=== PATIENT | female | born 1980 | race Two or more races ===

== ENCOUNTER 2020-08-03 20:51 | Emergency (ER) | payer OTHER ==
[~2020-08-03] VITALS: Ht 167.6 cm; Wt 72.6 kg
[2020-08-03 20:58] VITALS: BP 137/78
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
[2020-08-03] MEDS ORDERED: Ketorolac 60mg Inj IM ONE (22:30)
[2020-08-03] MEDS ORDERED: Acetaminophen 500mg (ES) tab ORAL ONE (22:30)
[2020-08-03 22:45] LABS: APPEARANCE,URINE CLOUDY; BILIRUBIN, URINE NEGATIVE (NEGATIVE); GLUCOSE, URINE (UA) NEGATIVE (NEGATIVE); KETONES,URINE NEGATIVE (NEGATIVE); LEUKOCYTE ESTERASE ,URINE 2+ (NEGATIVE); NITRITE,URINE NEGATIVE (NEGATIVE); PH,URINE 5 (4.5-8.0); PROTEIN,URINE 2+ (NEGATIVE); UROBILINOGEN,URINE NORMAL MG/DL (0.0-1.0)
[2020-08-03 22:47] LABS: COLOR,URINE YELLOW
[2020-08-03 22:50] VITALS: BP 132/84
[2020-08-03] MEDS ORDERED: IBUPROFEN600 M1 ORAL (23:46)
[2020-08-03] MEDS ORDERED: NITROFURANTOIN100 M2 ORAL (23:46)
[2020-08-03] MEDS ORDERED: NORCO 5-325 TA1 EAC1 ORAL (23:46)
[2020-08-03 23:54] VITALS: BP 129/83
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
[2020-08-06] MEDS ORDERED: IBUPROFEN600 M1 ORAL (11:38)
[2020-08-06] MEDS ORDERED: NITROFURANTOIN100 M2 ORAL ×2 (11:38)
[2020-08-06] MEDS ORDERED: CEPHALEXIN500 MG ORAL (13:25)
== END 2020-08-03 23:54 | disposition home or self-care (01) ==
LOC: EDBD 20:51 → EMR 21:27
DX: S20.212A Contusion of left front wall of thorax, initial encounter (principal); S20.02XA Contusion of left breast, initial encounter; S50.11XA Contusion of right forearm, initial encounter; S80.12XA Contusion of left lower leg, initial encounter; Y04.2XXA Assault by strike against or bumped into by another person, initial encounter; Y92.9 Unspecified place or not applicable; N30.00 Acute cystitis without hematuria; I10 Essential (primary) hypertension
CPT/HCPCS: 71101; 80307; 81003; 81025; 87086; 87181; 87491; 87590; 96372; Z7502; 99283

== ENCOUNTER 2020-08-11 11:38 | Emergency (ER) | payer OTHER ==
[~2020-08-11] VITALS: Ht 175.3 cm; Wt 83.9 kg
[~2020-08-11 11:38] MED LIST: CEPHALEXIN500 MG ORAL; IBUPROFEN600 M1 ORAL; NITROFURANTOIN100 M2 ORAL; NORCO 5-325 TA1 EAC1 ORAL
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
[2020-08-11 11:40] VITALS: BP 95/42
[2020-08-11] MEDS ORDERED: Ketorolac 60mg Inj IM ONE ×2 (11:45→12:07)
[2020-08-11] MEDS ORDERED: Ketorolac 30mg Inj ONE (12:04)
--- NOTE | 2020-08-11 12:42 | NUR ---
ED Nurse Note: pt unable to provide urine sample at this time.
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
[2020-08-11 13:45] VITALS: BP 102/59
--- NOTE | 2020-08-11 14:00 | NUR ---
ED Nurse Note: pt declines urine specimen. ED PA aware.
--- NOTE | 2020-08-11 14:18 | Diagnostic Imaging Report ---
Indication: Chest/rib pain Technique: Noncontrast CT of the chest utilizing automated exposure control. Axial, sagittal and coronal reformats presented. CT dose: Total DLP 362.5 mGycm; CTDI vol 8.5 mGy Comparison: Correlation made to rib radiographs 08/03/2020 Findings: Please note that evaluation of the mediastinum and vascular structures is limited without the use of intravenous and oral contrast. Within these limitations the following observations are made: Minimal dependent atelectatic changes noted in the lung bases. There is no focal airspace consolidation. No pleural effusion or pneumothorax. No evidence of pulmonary contusion. Heart size is within normal limits. No pericardial effusion. No appreciable pathologically enlarged hilar or mediastinal lymphadenopathy. Partially imaged thyroid unremarkable in appearance. Thoracic aorta appears normal in caliber. Noncontrast evaluation of the partially imaged upper abdominal structures is without evidence of acute abnormality. No acute osseous abnormality identified. Specifically, no definite/displaced rib fractures are appreciated. Question subtle asymmetric nodularity of the left breast which is partially visualized. IMPRESSION: No acute abnormality. No evidence of significant traumatic injury to the chest. No acute fracture identified. Possible slight asymmetric nodularity of the left breast, which is partially visualized. Recommend correlation with breast exam and findings of most recent mammogram. If not performed recently then recommend follow-up routine screening mammogram. The CT scanner at [facility] is accredited by the [employer] and the scans are performed using protocols designed to limit radiation exposure to as low as reasonably achievable to attain images of sufficient resolution adequate for diagnostic evaluation.
[2020-08-11] MEDS ORDERED: LIDODERM700 M1 TOPIC (14:21)
[2020-08-11] MEDS ORDERED: NORCO 5-325 TA1 EAC1 ORAL (14:21)
[2020-08-11 14:45] VITALS: BP 106/68
--- NOTE | 2020-08-11 14:45 | NUR ---
ED Nurse Note: Pt cleared by health care Provider for discharge. DC instructions/prescription were given and explained to pt. Pt verbalized understanding of teachings. All medical devices such as ID band removed. Pt is AAO x4, ambulatory and left with all personal belongings.
== END 2020-08-11 14:45 | disposition home or self-care (01) ==
LOC: EDBD 11:38 → EMR 12:30
DX: R07.81 Pleurodynia (principal); S80.12XA Contusion of left lower leg, initial encounter; Y09 Assault by unspecified means; R07.9 Chest pain, unspecified
CPT/HCPCS: 71250; 96372; Z7502; 99284